=== PATIENT | male | born 1995 | race African-American/Black ===

== ENCOUNTER 2017-05-11 00:52 | Emergency (ER) | payer SELFPAY ==
[~2017-05-11] VITALS: Ht 180.3 cm; Wt 71.9 kg
[2017-05-11 00:54] VITALS: BP 116/76
== END 2017-05-11 01:05 | disposition left against medical advice (07) ==
LOC: ED 00:59
DX: R05 Cough (principal); J02.9 Acute pharyngitis, unspecified; Z53.21 Procedure and treatment not carried out due to patient leaving prior to being seen by health care provider

== ENCOUNTER 2017-07-11 07:06 | Emergency (ER) | payer SELFPAY ==
[~2017-07-11] VITALS: Ht 177.8 cm; Wt 81.0 kg
[2017-07-11 07:07] VITALS: BP 116/76
== END 2017-07-11 07:58 | disposition home or self-care (01) ==
LOC: ED 07:22
DX: J02.9 Acute pharyngitis, unspecified (principal); Z53.21 Procedure and treatment not carried out due to patient leaving prior to being seen by health care provider

== ENCOUNTER 2017-07-11 08:53 | Emergency (ER) | payer SELFPAY ==
[~2017-07-11] VITALS: Ht 177.8 cm; Wt 74.7 kg
[2017-07-11 08:57] VITALS: BP 128/77
[2017-07-11] MEDS ORDERED: DEXAMETHASONE 4 MG/ML, 1ML PO ONE (09:30)
[2017-07-11] MEDS ORDERED: DEXAMETHASONE 4 MG/ML, 5ML ONE (09:31)
== END 2017-07-11 10:11 | disposition home or self-care (01) ==
LOC: ED 10:05
DX: J02.8 Acute pharyngitis due to other specified organisms (principal); B97.89 Other viral agents as the cause of diseases classified elsewhere; H61.23 Impacted cerumen, bilateral
CPT/HCPCS: 87081; 87880; 99284; J1100; 87147